=== PATIENT | male | born 1960 | race Caucasian/White ===

== ENCOUNTER → 2023-02-09 | Outpatient (CLI) | payer BC ==
--- NOTE | 2023-02-09 16:04 | PE ---
EXAMINATION TYPE: PET CT fusion skull to thigh DATE OF EXAM: 02/09/2023 CLINICAL INDICATION:Male, 62 years old with history of R93.89; TECHNIQUE: Following the intravenous administration of 8.55 mCi of F-18 FDG, whole body images are performed from the skull base to the midthigh. Images are reviewed on the computer in the coronal, a xial, and sagittal planes. Reconstructed rotating images are created on independent workstation and reviewed on the computer. A non-contrast CT is performed in conjunction with the PET scan. Glucose level 96 mg/dL CT DLP: 537 mGycm, Automated exposure control for dose reduction was used. COMPARISON: CT None, PET/CT None, FINDINGS: Mediastinal SUV mean is 1.7 . Hepatic parenchyma SUV mean is 2.6. SKULL BASE AND NECK: No suspicious radiotracer activity. CHEST, MEDIASTINUM, AND HILAR REGION: Patchy airspace opacities are seen within the right lower lobe. Max SUV 2.0. ABDOMEN AND PELVIS: No suspicious radiotracer activity. MUSCULOSKELETAL STRUCTURES: No suspicious radiotracer activity. OTHER CT: Atherosclerosis of the arterial vasculature including the coronary arteries. Trace bilatera l gynecomastia. Cholelithiasis. Fat-containing buccal hernia. Prostatomegaly. Bilateral fat-containin g inguinal hernias. IMPRESSION: Right lower lobe airspace opacities with mildly increased FDG activity. Findings suggest infectious/i nflammatory process. There are no priors available to compare to. Consider CT surveillance to ensure resolution.
== END | disposition home or self-care (01) ==
LOC: RADXRMAIN 09:41
PROVIDERS: ATTEND Family Medicine
DX: R91.8 Other nonspecific abnormal finding of lung field (principal); R93.89 Abnormal findings on diagnostic imaging of other specified body structures
CPT/HCPCS: 78815; A9552

== ENCOUNTER → 2023-09-03 | Outpatient (CLI) | payer BC ==
--- NOTE | 2023-09-03 14:55 | CT ---
Exam: CT Chest with contrast. Date: 09/03/2023. Comparison: 03/18/2023. History: Follow-up for abnormal findings of the lung field. Technique: CT examination of the chest was performed following the intravenous administration of 100 mL of Isovue-300. Coronal and sagittal reformats were performed. CT dose lowering techniques were us ed, to include: automated exposure control, adjustment for patient size, and/or use of iterative trudi nstruction. FINDINGS: Mediastinum and Marge: There is no axillary, mediastinal or hilar lymphadenopathy. Pleural and Pericardial spaces: There are no pleural or pericardial effusions. Upper Abdomen: Multiple gallstones are seen within the gallbladder. The visualized upper abdomen othe rwise appears unremarkable. Cardiovascular: The thoracic aorta is normal in size without evidence of aneurysm or dissection. Ther e is moderate coronary artery calcification within the left anterior descending. Pulmonary Artery: There are no central pulmonary arterial abnormalities. The examination was not per formed to evaluate for pulmonary embolism. Lung Parenchyma and Airways: There is a 3 mm nodule in the right lower lobe which is unchanged. There are scattered interstitial bands of opacity and bronchial wall thickening which is likely chronic an d due to some inflammatory airway changes. There is no focal area of consolidation. No new or enlargi ng nodules identified. Bones: No fracture or aggressive osseous lesion. IMPRESSION: 1. Mild chronic basilar lung changes and inflammatory airway changes. No focal consolidation. 2. Moderate coronary artery calcification. 3. Unchanged tiny pulmonary nodules are most likely benign. 4. Cholelithiasis.
== END | disposition home or self-care (01) ==
LOC: RADCTMAIN 08:26
PROVIDERS: ATTEND Internal Medicine Critical Care Medicine
DX: I25.10 Atherosclerotic heart disease of native coronary artery without angina pectoris (principal); J98.8 Other specified respiratory disorders; K80.20 Calculus of gallbladder without cholecystitis without obstruction; J98.4 Other disorders of lung; R91.8 Other nonspecific abnormal finding of lung field
CPT/HCPCS: 71260